=== PATIENT | female | born 1980 | race Caucasian/White ===

== ENCOUNTER 2016-09-03 06:58 | Inpatient (IN) | payer OTHER ==
[2016-09-03 07:01] VITALS: BMI 32.5
[2016-09-03] MEDS: Lactated Ringer's 1,000 ML IV SCH ×3 (07:40→20:32)
[2016-09-03 07:52] VITALS: BP 115/77; PULSE 74; RESP 18; TEMP 98.1
[2016-09-03 07:52] LABS: HEMATOCRIT 30.8 % (34.0-47.0); MEAN CELL VOLUME 81.8 fl (81.0-99.0); MEAN CORPUSCULAR HEMOGLOBIN 27.4 pg (27.0-31.0); MEAN CORPUSCULAR HGB CONC 33.5 g/dL (33.0-37.0); WHITE BLOOD COUNT 8.1 K/uL (4.8-10.8)
[2016-09-03] MEDS ORDERED: Oxytocin 30 units/LR 500ML 30 U/500 ML BAG IV ONE (07:55)
[2016-09-03] MEDS ORDERED: Morphine 1 mg/ml preservative-free Inj(Duramorph) ONE (08:15)
[2016-09-03] MEDS ORDERED: Dexamethasone 4 mg/1 ml ONE (08:17)
[2016-09-03] MEDS ORDERED: ePHEDrine 50 mg/ml Inj ONE (08:19)
[2016-09-03] MEDS ORDERED: Phenylephrine 10 mg/ml Inj ONE (08:22)
[2016-09-03] MEDS ORDERED: ceFAZolin 2 GM in Sodium Chloride 0.9% 100 ML IVPB ONE (08:40)
--- NOTE | 2016-09-03 11:06 | OBHP ---
Datetime: 09/03/2016 08:35 IP Adm Impression: Term, intrauterine IP Admit Plan: Initiate Section protocol Admit Comment, IP Provider: 36 y/o @ 40 wks IUP presents for scheduled primary section . The patient has no complaints, denies headaches, chest pain, n/v/d, VB, LOF, fevers, and dysuria. allergies: NKDA PMH: none PSH: arthroscopic knee surgeries (1998, 2000, 2006), cataract surgery (1999, 2010), cornea repair 2009 OBhx: none GBS: neg ABO-Rh: O+ antibody: neg RPR: neg HIV: neg HBsAg: neg Rubella: immune O: CV: RRR Resp: CTA bl A: 36 y/o @ 40 wks IUP presents for scheduled primary P: initiate protocol continuous monitoring type and screen ordered rpr ordered ancef 2gm ordered LR bolus ordered Brandt Bartlett Band Aid Machine Operator PGY-1 Pelvic Type - PN: Adequate Extremities - PN: Normal Abdomen - PN: Normal Back - PN: Normal Breast - PN: Normal Lungs - PN: Normal Heart - PN: Normal Thyroid - PN: Normal Neurologic - PN: Normal HEENT - PN: Normal General - PN: Normal FHR - Baseline A Provider: 130 IP Hx Assessment: The History has been Reviewed and is Current Vital Signs Provider: Reviewed; Within Normal Limits IP Indication for Induction: Not Applicable IP Chief Complaint: Scheduled Section NICHD Variability Prov Fetus A: Moderate 6-25bpm NICHD Accel Fetus A IP Provider: [id number] NICHD Decel Fetus A IP Provider: None Genitourinary Exam: Normal DTRs - PN: Normal
[2016-09-03] MEDS ORDERED: Oxycodone/Acetaminophen 5/325 mg Tab PO PRN (11:27)
[2016-09-03] MEDS: Simethicone 80 mg Chewtab PO SCH ×2 (16:03→22:04)
--- NOTE | 2016-09-03 16:19 | OBADHP ---
Datetime: 09/03/2016 08:35 Admit Comment, IP Provider: 36 y/o @ 40 wks IUP presents for scheduled primary section . The patient has no complaints, denies headaches, chest pain, n/v/d, VB, LOF, fevers, and dysuria. allergies: NKDA PMH: none PSH: arthroscopic knee surgeries (1998, 2000, 2006), cataract surgery (1999, 2010), cornea repair 2009 OBhx: none GBS: neg ABO-Rh: O+ antibody: neg RPR: neg HIV: neg HBsAg: neg Rubella: immune O: CV: RRR Resp: CTA bl A: 36 y/o @ 40 wks IUP presents for scheduled primary P: initiate protocol continuous monitoring type and screen ordered rpr ordered ancef 2gm ordered LR bolus ordered Brandt Bartlett Commission Agent Livestock PGY-1 The patient was seen with resident I agree with the notes. Patient noted to have macrosomic infant EFW 9 pounds patient opted for primary section maternal request. We discussed risks benefit s alternatives to vaginal delivery and primary delivery. After thorough discussion patient o pted for primary section patients wishes respected Pelvic Type - PN: Adequate Extremities - PN: Normal Abdomen - PN: Normal Back - PN: Normal Breast - PN: Normal Lungs - PN: Normal Heart - PN: Normal Thyroid - PN: Normal Neurologic - PN: Normal HEENT - PN: Normal General - PN: Normal FHR - Baseline A Provider: 130 IP Hx Assessment: The History has been Reviewed and is Current Vital Signs Provider: Reviewed; Within Normal Limits IP Chief Complaint: Scheduled Section NICHD Variability Prov Fetus A: Moderate 6-25bpm NICHD Accel Fetus A IP Provider: [id number] NICHD Decel Fetus A IP Provider: None Genitourinary Exam: Normal DTRs - PN: Normal IP Adm Impression: Term, intrauterine IP Admit Plan: Initiate Section protocol
--- NOTE | 2016-09-03 20:56 | OP ---
PROCEDURE DATE: 09/03/2016 PREOPERATIVE DIAGNOSIS: Macrosomia, primary section maternal request. POSTOPERATIVE DIAGNOSIS: Macrosomia, primary section maternal request. OPERATION PERFORMED: Primary low flap transverse section by Pfannenstiel skin incision. SURGEON: Bhanu Mccann MD. FACILITATOR: Dr. Shaka Cm. ANESTHESIA: Spinal administered by Dr. Anderson. ESTIMATED BLOOD LOSS: 800 mL. Ledezma catheter put out approximately 300 mL of clear urine. The patient received 1200 mL of D5LR int raoperatively. OPERATIVE FINDINGS: Baby boy, vertex presentation, weighing 8 pounds 15 ounces. Normal uterus, tube s, and ovaries were identified. COMMENTS: Dr. Cm was the funeral assistant in the procedure. He was instrumental in the care of the patien t. He helped create exposure, obtain hemostasis, was helpful in delivery of the baby and closure of the patient. Procedure would not have been possible without his assistance. PROCEDURE: After informed consent was obtained, the patient was taken to the operating room where heather rockwell was given spinal anesthesia. She was then prepped and draped in the usual sterile fashion. A Pfan nenstiel skin incision was then made with a scalpel and carried down to the underlying layer of fasci a. The fascia was nicked in the midline and the fascial incision was extended laterally with curved Whitten scissors. Superior aspect of the fascial incision was then grasped with Jennifer clamps, elevated up, and the rectus muscles were dissected off using both sharp and blunt dissection. Attention was then turned to the inferior aspect of the fascial incision which in similar fashion was grasped with Jennifer clamps, elevated up, and the rectus muscles were dissected off using both sharp and blunt diss ection. The rectus muscles were then in the midline. The peritoneum identified, tented up and entered sharply with the Metzenbaum scissors. The peritoneal incision was then extended superio rly with good visualization of the bladder. The bladder blade was then inserted. The vesicouterine peritoneum identified and entered sharply with the Metzenbaum scissors. The incision was then extend ed laterally. The bladder blade was then reinserted. A low transverse incision was then made with a scalpel. The uterine incision was then extended with bandage scissors. The infant's head was then delivered atraumatically. The nose and mouth were suctioned with DeLee suction trap. The cord was c lamped and cut. The was handed off to waiting pediatricians. The placenta was then removed m anually. The uterus was exteriorized and cleared of all clots and debris. The uterine incision was repaired with 0 Vicryl in a running locked fashion. The second layer of the same suture was used to obtain excellent hemostasis. The abdomen was then copiously irrigated. Irrigant was removed with a suction device. Hemostasis was noted. The uterus was returned to the abdomen. The incision was ins pected. Hemostasis was noted. The gutters were then cleared of all clots and debris. The peritoneu m was closed with 2-0 Vicryl in a running fashion. The muscle was reapproximated with 0 Vicryl in in terrupted fashion. The fascia was closed with 0 Vicryl in a running fashion. The skin was closed wi th 4-0 on a Jonathan needle. All sponge, lap, needle, and instrument counts were correct x 2 and the pa tient was taken to recovery room in awake and stable condition. Bhanu Mccann MD cc: [id number] TT: 09/03/2016 20:55:32 chris
[2016-09-04] MEDS: Lactated Ringer's 1,000 ML IV SCH (03:49)
[2016-09-04] MEDS: Simethicone 80 mg Chewtab PO SCH ×4 (03:53→21:51)
[2016-09-04 07:41] LABS: HEMATOCRIT 26.3 % (34.0-47.0); MEAN CELL VOLUME 82.6 fl (81.0-99.0); MEAN CORPUSCULAR HGB CONC 32.7 g/dL (33.0-37.0); RED CELL DISTRIBUTION WIDTH 16.8 % (11.5-14.5); WHITE BLOOD COUNT 10.2 K/uL (4.8-10.8)
--- NOTE | 2016-09-04 08:59 | OBPPN ---
Datetime: 09/04/2016 08:57 PP Pain Prov: Within normal limits PP Nausea Prov: Denies PP BM Prov: No PP Abdomen/Uterus Prov: Normal PP Lochia Prov: Normal PP Extremities Prov: Normal PP C/S Incision Prov: Normal PP Progress Prov: Normal PP Comments Phys Exam Prov: Incision w/ bandage in place PP Impression Prov: Normal progression PP Plan Prov: Continue present management PP Progress Note Prov: POD 1 s/p primary c/s per maternal request OOB today Advance diet as tolerated Vital Signs Provider PP: Reviewed
[2016-09-04] MEDS: Oxycodone/Acetaminophen 5/325 mg Tab PO PRN (19:32)
[2016-09-05] MEDS: Oxycodone/Acetaminophen 5/325 mg Tab PO PRN ×2 (01:56→22:14)
[2016-09-05] MEDS: Simethicone 80 mg Chewtab PO SCH ×4 (04:19→22:00)
--- NOTE | 2016-09-05 15:40 | OBPPN ---
Datetime: 09/05/2016 15:36 PP Pain Prov: Within normal limits PP Nausea Prov: Denies PP Flatus Prov: Yes PP Breasts Prov: Normal PP Heart Prov: Normal PP Lungs Prov: Normal PP Abdomen/Uterus Prov: Normal PP Lochia Prov: Normal PP Vulva/Perineum Prov: Normal PP CVA Tenderness Prov: Normal PP Extremities Prov: Normal PP Comments Phys Exam Prov: Fundus firm under umbilicus Incision clean/dry/intact PP Impression Prov: Normal progression PP Plan Prov: Continue present management PP Progress Note Prov: Patient denies CP, no SOB, no N/V, tolerating PO diet, ambulating/voiding wel l, mild lochia, abdominal pain tolerable with meds, +flatus A/P POD #2 1. Reg diet 2. PErcocet/Motrin prn pain 3. Encourage ambulation/ IP PP Procedures: None Vital Signs Provider PP: Reviewed; Within Normal Limits
[2016-09-06] MEDS: Simethicone 80 mg Chewtab PO SCH (04:26)
[2016-09-06] MEDS: Oxycodone/Acetaminophen 5/325 mg Tab PO PRN (05:35)
--- NOTE | 2016-09-06 10:49 | OBDCSUM ---
Datetime: 09/06/2016 08:34 Discharged to, Provider: Home Follow up at, Provider: OB Disch Instr Activity: May be up to bathroom; May be up for meals; May Shower Disch Instr Diet: Regular Discharge Time: 09/06/2016 08:36 Follow up in weeks, Provider: 4-6 weeks Disch Referrals: None Disch Activity Restrictions: Minimize stair-climbing; No sexual activity; Nothing in vagina - Interc ourse, tampons, douche
--- NOTE | 2016-09-06 10:49 | OBPPN ---
Datetime: 09/06/2016 10:48 PP Pain Prov: Within normal limits PP Nausea Prov: Denies PP Flatus Prov: Yes PP Breasts Prov: Normal PP Heart Prov: Normal PP Lungs Prov: Normal PP Abdomen/Uterus Prov: Normal PP Lochia Prov: Normal PP Vulva/Perineum Prov: Normal PP CVA Tenderness Prov: Normal PP Extremities Prov: Normal PP Comments Phys Exam Prov: Fundus firm under umbilicus PP Impression Prov: Normal progression PP Plan Prov: Continue present management PP Progress Note Prov: Patient deneis CP, no SOB, no N/V, tolerating PO diet, ambulating/voiding wel l, mild lochia, abdominal pain tolerable with meds A/P PPD #2 1. Discharge instructions reviewed 2. Discharge patient today IP PP Procedures: None Vital Signs Provider PP: Reviewed; Within Normal Limits
== END 2016-09-06 14:29 | disposition home or self-care (01) | DRG 766 ==
LOC: H.EROB2 06:58 → H.L&D 07:04 → H.OB/GYN 17:41
PROVIDERS: ADMIT Obstetrics & Gynecology Gynecology; ATTEND Obstetrics & Gynecology Gynecology
PROC: 10D00Z1 Extraction of Products of Conception, Low, Open Approach (ICD-10-PCS; principal; 2016-09-03)
PROC: 4A1HXCZ Monitoring of Products of Conception, Cardiac Rate, External Approach (ICD-10-PCS; 2016-09-03)
DX: O36.63X0 Maternal care for excessive fetal growth, third trimester, not applicable or unspecified (principal); Z37.0 Single live birth; Z3A.40 40 weeks gestation of pregnancy